=== PATIENT | male | born 2000 | race Caucasian/White ===

== ENCOUNTER 2023-10-23 16:34 | Emergency (ER) | payer BC ==
[~2023-10-23] VITALS: Ht 182.9 cm; Wt 68.5 kg
[2023-10-23 16:35] VITALS: BP 129/61; TEMP 98.7; O2SAT 97
[2023-10-23] MEDS: ACETAMINOPHEN 325 MG TAB PO ONE (17:08)
== END 2023-10-23 17:41 | disposition home or self-care (01) ==
LOC: M ED 16:34
DX: S01.01XA Laceration without foreign body of scalp, initial encounter (principal); S06.0X0A Concussion without loss of consciousness, initial encounter; W22.09XA Striking against other stationary object, initial encounter; F17.200 Nicotine dependence, unspecified, uncomplicated; Z88.1 Allergy status to other antibiotic agents; Y92.9 Unspecified place or not applicable; Y93.89 Activity, other specified; Y99.9 Unspecified external cause status